=== PATIENT | male | born 1960 | race Caucasian/White ===

== ENCOUNTER → 2016-07-07 | Day surgery (SDC) | payer BC ==
[~2016-07-07] MED LIST: Bupivacaine 0.25% 30 ML SDV INJECT ONE; Iohexol 647 MG/ML 10 ML SDV IVPUSH ONE; methylPREDNISolone Acetate 80 MG/ML SDV IARTIC ONE
--- NOTE | 2016-07-08 07:52 | CR ---
INDICATION: Guidance for LÁZARO at L2-3 in a patient with back pain. C-ARM FLUOROSCOPY IN OR UP TO ONE HOUR: 1.3 minutes C-arm fluoroscopy time was utilized in guidance for LÁZARO at the L2-3 level. Injection at L2-3 showed epidural flow. Injection of Omnipaque 5 mL total with 2 injections. Prior to injection, the patients pain was 7 out of 10 level. After LÁZARO - level decreased to 3 out of 10, compatible with pain relief of moderate degree. IMPRESSION: Satisfactory placement for LÁZARO at L2-3. MTDD
--- NOTE | 2016-07-09 09:40 | ANES ---
DATE OF PROCEDURE: 07/07/2016 REFERRING PHYSICIAN: Chloe Bauman CRNA REFERRING PRACTITIONER: Dr. Ashby. PROCEDURE PERFORMED: LÁZARO at L2-L3. REFERRAL DIAGNOSIS: Right L3-L4 disk herniation. MRI RESULTS: First of all, there is a new right subarticular paracentral disk extrusion with cranial migration at L3-L4, which completely effaces the right lateral recess at this level. Correlate with symptomatology related to the cauda equina here. There is moderate to severe right foraminal narrowing as well at this level. There is also small central posterior disk extrusion at L4- L5 without significant canal stenosis. There is foraminal narrowing most pronounced on the left at this level. There is a slightly worsened foraminal narrowing on the right at L5-S1. There has been progression of the facet degeneration at this level with a new grade 1 anterolisthesis. I did contact Dr. Ashby's clinic and had them send over signs and symptoms to make sure there was not significant cauda equina when he evaluated him yesterday, which was negative as far as for bladder control or any of that. I also reviewed the MRI with Dr. Beltran prior to the patient arriving. HISTORY: This is a 55-year-old male, who is morbidly obese with BMI of close to 51. He is alert and orientated. He does have acute back pain today. PAIN HISTORY: He has had multiple years of back pain and right SI pain. For the last 2 or 3 months, it has been acute. His last epidural injection was in [place] and that was in 2010. He stated he had a poor experience with the injection and has not had one since. Normally, he would have had an injection every 18 to 24 months since 2003. He has had SI injection since 2001. He does have a total numbness of the right foot and even when touching his thigh today, it is numb. He did try PT, this did not help. He has been taking Percocet one at night, ibuprofen 800 mg every 4 to 6 hours. He has had none since yesterday. He has had no aspirin since yesterday. He takes 1 baby aspirin a day. Did discuss because of his significant results from his MRI that he should make an appointment again with neurosurgeon to consider having surgery to release this nerve. Dr. Ashby also told him he would probably be having some surgery down the road, but this cortisone could help him get by until then. His pain scale rating today is 7/10. Skin condition, normal on lower back, coccyx area does have some psoriasis, nothing open noted. Cardiovascular history is negative, except he does have hypertension. Today, his blood pressure is 155/66, his heart rate is 73, his saturation is 96%, and temperature 98.1. Lungs are clear. Observing gait today, the patient walking favoring his left leg due to his right leg pain. He does not use a cane, does not use a walker. Doing his posture, he is midline from head to trochanters. Looking at his posture, lateral view was within normal limits. Cervical, thoracic, and lumbar area was within normal limits. When observing his standing trunk range of motion, he was somewhat restricted on his right side, somewhat restricted on the left side when doing the side bends. He was somewhat restricted on the right side when rotation. He was unrestricted with the flexion and extension. When walking on his toes, today he had no pain, and he is able to do that. He is able to walk on his heels with his feet inverted and has significant pain when doing that. He is able to walk on heels with feet in a neutral, and he does have pain with that. In a sitting position, checking L4, the patient dorsiflexes and everts while I force into his plantar flexion with eversion. He is weaker on his right side compared to his left side. When I held his great toe down while the patient dorsiflexed his foot, he was normal on the left, weak on the right. When I opposed dorsiflexion of the great toe, he was weaker on his right side than his left side. In a seated position, I had stabilized his pelvis and had him raise his thigh off the table; he was 3/4 on the left side, 3/5 on the right with some pain on the right side, minimal. When I placed one hand above the knee and provided resistance to his lower leg as the patient raised it, he was 4/5 on right and 5/5 on the left. He did have some pain and numbness when touching his right leg. In the supine position, he did the straight leg raise, he was negative on the left and positive on the right. Contralateral leg raise was negative bilaterally. Dago's test was negative on the right side and positive on the left side. Pelvic compression test is negative bilaterally. In the lateral position, I had the patient abduct well. I placed some resistance to his leg. He was 2/5 on the right. He was quite weak on the right. He was 5/5 on the left. In the prone position testing, I had him bend his knee then extend while I had some resistance on it. He was 3/5 on the right, pain was midback, and 5/5 on the left with pain midback. Reverse straight leg, he was negative on the left. He did have some anterior thigh pain on the right. INFORMED CONSENT: I did receive informed consent from the patient, explained all the risks and benefits of having this epidural, including the risk of having a severe headache, which he does have a history of having this in the past. He did review and signed consent for an epidural steroid injection. PROCEDURE IN DETAIL: The patient walked backed to OR #1. A procedure time-out was performed. Total fluoroscopy time today was 1.3 minutes, mGy was 102. The patient was in a seated position. Back was prepped with ChloraPrep. Sterile drape was applied. Numbed the skin with 1% Xylocaine, 5 mL. A #17 Tuohy needle was inserted. Fluoroscopy was performed. Needle looked like it was in epidural space on fluoroscopy. Injected 2 mL of contrast, noted contrast to be in tissue, advanced slightly. No loss of resistance. Again, fluoroscopy looked likely we are in epidural space. Another 1 mL of contrast was injected. No flow in epidural space. Needle advanced to the point where it would not advance anymore. Did receive good loss of resistance. Injected 1 to 2 mL of contrast and did get good up and down flow into the epidural space. At this point, I leveled the needle downward and I injected Depo-Medrol 80 mg and Marcaine preservative free 0.25% at 6 mL. The patient did feel lightheaded. I had the patient lie down for approximately 1 minute, felt good, had him walk back to his room. The pain was down to 4-5/10. I came back to visit the patient within 15 minutes and gave him instructions. He was informed he can have 4 of these injections per year. We have an order for that and that, if he has any problems with more weakness in the legs or temperature, more back pain, to give the hospital a call. He was given a pain diary and informed to keep track of his pain for the next couple of months. The patient rated his pain down to a 3 prior to discharge, getting some relief in the back and some in the leg also. /[id number] MARIAMA/JASPREETL
== END ==
LOC: FB.SDS 10:04
PROVIDERS: ATTEND Nurse Anesthetist, Certified Registered
DX: M51.26 Other intervertebral disc displacement, lumbar region (principal); Z88.8 Allergy status to other drugs, medicaments and biological substances
CPT/HCPCS: 62323; 76000; J1040; Q9967; J3490

== ENCOUNTER 2016-11-20 19:23 | Emergency (ER) | payer BC ==
[2016-11-20] MEDS ORDERED: HYDROmorphone 2 MG/ML SDV IM ONE ×2 (19:47→21:49)
[2016-11-20] MEDS ORDERED: predniSONE 20 MG Tab PO ONE (20:52)
[2016-11-20] MEDS ORDERED: Acetaminophen/oxyCODONE 325-5 MG Tab PO ONE (20:52)
[2016-11-20] MEDS ORDERED: Ketorolac 30 MG/ML SDV IVPUSH ONE (22:21)
[2016-11-20] MEDS ORDERED: fentaNYL 100 MCG/2 ML SDV IVPUSH ONE (22:21)
--- NOTE | 2016-11-21 01:27 | ER ---
DATE SEEN: 11/20/2016 ADDENDUM: The patient did not have good relief with Dilaudid 4 mg IM (Dr. Mccollum gave him addition of 2 mg). I had put an IV line and gave him 100 mcg of fentanyl and 30 mg of Toradol, symptoms improved and he was discharged home with the same followup instructions. /[id number] RAIZA/RAGINI
--- NOTE | 2016-11-21 02:00 | ER ---
DATE SEEN: 11/20/2016 CHIEF COMPLAINT: Back pain. HISTORY OF PRESENT ILLNESS: Kiko is a 56-year-old male with chronic back pain. He comes in with an exacerbation for 2 days that is severe to the point that he is unable to walk because of the pain, cramping in nature. He has tried oxycodone at home with no relief. It does not radiate anywhere. REVIEW OF SYSTEMS: No urinary symptoms. No fever. No recent trauma. PAST MEDICAL HISTORY: Hypertension, obesity,insomnia. ALLERGIES: Reviewed. MEDICATIONS: Reviewed. PHYSICAL EXAMINATION: VITAL SIGNS: Blood pressure is 169/90, pulse is 83, and temperature 98.1. MUSCULOSKELETAL: Reveals no obvious swelling. There is tenderness to palpation of lumbar spine and right SI joint. Paraspinal muscles are very tight and hypertonic. GAIT: Wheelchair. NEUROLOGIC: No focal findings. Deep tendon reflexes are symmetric. IMPRESSION: Acute exacerbation of chronic back pain. PLAN: 1. My plan is Dilaudid and Valium IM #2, send home on prednisone 10 mg b.i.d. and oxycodone. I advised him to come back to the office next week. Time seen was 8 p.m. /[id number] RAIZA/RAGINI
== END 2016-11-20 23:10 | disposition home or self-care (01) ==
LOC: FB.ED 19:23
DX: M54.5 Low back pain (principal); G89.29 Other chronic pain; I10 Essential (primary) hypertension; E66.9 Obesity, unspecified; G47.00 Insomnia, unspecified
CPT/HCPCS: 96372; 96374; 96375; 99283; A9270; J1170; J1885; J3010; J3360

== ENCOUNTER 2017-12-30 08:44 | Day surgery (SDC) | payer BC ==
[2017-12-30] MEDS ORDERED: Lactated Ringers 1,000 ML IV SCH (08:45)
[2017-12-30] MEDS ORDERED: Propofol 200 MG/20 ML SDV IV ONE (10:00)
--- NOTE | 2017-12-30 10:41 | PCM.OPNOTE ---
- General Post-Op/Procedure Note Date of Surgery/Procedure: 12/30/17 Operative Procedure(s): c scope Findings: sigmoid diverticulosis Pre Op Diagnosis: screening Post-Op Diagnosis: sigmoid diverticulosis Anesthesia Technique: MAC Primary Surgeon: Familia Zelaya Anesthesia Provider: Clayton Maxwell Pathology: none Complications: None Condition: Good Free Text/Narrative:: see dictation
--- NOTE | 2017-12-30 15:03 | OR ---
DATE OF OPERATION: 12/30/2017 SURGEON: Familia Zelaya MD PROCEDURE PERFORMED: Colonoscopy. PREOPERATIVE DIAGNOSIS: Need for screening C-scope. POSTOPERATIVE DIAGNOSIS: Sigmoid diverticulosis. INDICATIONS FOR PROCEDURE: This is a 57-year-old white male, who presents for screening colonoscopy. He was offered and accepted same. DESCRIPTION OF OPERATION: After an excellent IV sedation was administered, digital rectal exam was performed. No marked abnormality was noted. Flexible colonoscope was inserted and advanced to the cecum without difficulty. The prep was excellent. The following findings were noted: Ascending colon, unremarkable. Transverse colon, unremarkable. Descending colon, unremarkable. Sigmoid, scattered diverticula. Rectum and anus, unremarkable. Colon was deflated as the scope was removed. Patient tolerated the procedure well and was taken recovery in good condition. /[id number] /JASPREETL
== END 2017-12-30 11:42 | disposition home or self-care (01) ==
LOC: FB.SDS 08:44
PROVIDERS: ATTEND Surgery
DX: Z12.11 Encounter for screening for malignant neoplasm of colon (principal); K57.30 Diverticulosis of large intestine without perforation or abscess without bleeding; I10 Essential (primary) hypertension; E66.9 Obesity, unspecified; Z68.33 Body mass index [BMI] 33.0-33.9, adult; G47.33 Obstructive sleep apnea (adult) (pediatric); K21.9 Gastro-esophageal reflux disease without esophagitis; Z79.899 Other long term (current) drug therapy; Z88.8 Allergy status to other drugs, medicaments and biological substances; Z88.6 Allergy status to analgesic agent
CPT/HCPCS: 45378; J7120; J2704

== ENCOUNTER 2021-10-06 21:36 | Emergency (ER) | payer BC ==
[2021-10-06] MEDS ORDERED: Acetaminophen/oxyCODONE 325-5 MG Tab PO ONE (21:37)
[2021-10-06] MEDS ORDERED: Acetaminophen/oxyCODONE 325-5 MG Tab PO STA ×2 (22:10→22:54)
[2021-10-06 23:07] VITALS: BP 145/85; PULSE 93
[2021-10-07] MEDS ORDERED: Sodium Chloride 0.9% 10 ML Syringe FLUSH PRN
[2021-10-07] MEDS ORDERED: cefTRIAXone 1 GM in Sodium Chloride 0.9% 50 ML IV ONE (00:01)
[2021-10-07] MEDS ORDERED: cefTRIAXone 1 GM Vial IM ONE (00:08)
[2021-10-07] MEDS ORDERED: HYDROmorphone 2 MG/ML SDV IM ONE (00:08)
== END 2021-10-07 00:41 | disposition home or self-care (01) ==
LOC: FB.ED 21:36
DX: U07.1 COVID-19 (principal); N39.0 Urinary tract infection, site not specified; R31.9 Hematuria, unspecified; I10 Essential (primary) hypertension; K21.9 Gastro-esophageal reflux disease without esophagitis; E66.9 Obesity, unspecified; Z68.25 Body mass index [BMI] 25.0-25.9, adult; Z88.8 Allergy status to other drugs, medicaments and biological substances
CPT/HCPCS: 36415; 74176; 81001; 83605; 85025; 87040; 87086; 87088; 96372; 99283; 99284-25; A9270-GY; J0696; J1170